=== PATIENT | male | born 1960 | race Caucasian/White ===

== ENCOUNTER 2023-12-08 06:08 | Day surgery (SDC) | payer BC ==
[2023-12-05 10:24] VITALS: BMI 26.7
[2023-12-08] MEDS ORDERED: Bupivacaine 0.25% HCL 30 ML VIAL ONE (08:15)
[2023-12-08] MEDS ORDERED: EPINEPHrine 1 MG/ML VIAL ONE (08:15)
[2023-12-08] MEDS ORDERED: Iopamidol 15 ML ONE (08:15)
[2023-12-08] MEDS ORDERED: Ondansetron PF 4 MG/2 ML Vial ONE (08:32)
[2023-12-08] MEDS ORDERED: Dexamethasone 20 MG/5 ML VIAL ONE (08:32)
[2023-12-08] MEDS ORDERED: Lidocaine 2% PF 5 ML VIAL ONE (08:32)
[2023-12-08] MEDS ORDERED: Rocuronium Bromide 10 MG/ML (10ML VIAL) ONE (08:32)
[2023-12-08] MEDS ORDERED: fentaNYL PF 100 MCG/2 ML SYRINGE ONE ×2 (08:33→09:11)
[2023-12-08] MEDS ORDERED: PROPOFOL 20 ML ONE (08:33)
[2023-12-08] MEDS ORDERED: SUGAMMADEX SODIUM 200 MG/2 ML VIAL ONE (08:33)
[2023-12-08] MEDS ORDERED: CEFAZOLIN 2 GM VIAL ONE (08:39)
[2023-12-08] MEDS ORDERED: Sodium Chloride 0.9% 100 ML ONE (08:39)
[2023-12-08] MEDS ORDERED: cefOXitin 2 GM VIAL ONE (08:44)
[2023-12-08] MEDS ORDERED: ePHEDrine Sulfate 50 MG/10 ML VIAL ONE (09:18)
[2023-12-08] MEDS ORDERED: Glycopyrrolate 0.2 MG/ML 5 ML SYRINGE ONE (09:22)
[2023-12-08] MEDS ORDERED: Ketorolac Tromethamine 30 MG (1 mL) VIAL ONE (09:45)
[2023-12-08] MEDS ORDERED: fentaNYL 50 mcg/mL 1 mL Vial ONE (10:17)
[2023-12-08] MEDS ORDERED: Promethazine HCl 25 MG/ML VIAL ONE (10:21)
== END 2023-12-08 12:05 | disposition home or self-care (01) ==
LOC: SDC 06:08
PROVIDERS: ATTEND Surgery
PROC: 0FT44ZZ Resection of Gallbladder, Percutaneous Endoscopic Approach (ICD-10-PCS; principal; 2023-12-08)
PROC: BF03YZZ Plain Radiography of Gallbladder and Bile Ducts using Other Contrast (ICD-10-PCS; principal; 2023-12-08)
DX: K80.10 Calculus of gallbladder with chronic cholecystitis without obstruction (principal); K82.8 Other specified diseases of gallbladder
CPT/HCPCS: 47532; 88304; C1889; J0171; J0665; J0694; J1100; J1885; J2001; J2405; J2550; J2704; J3010; J3490; Q9967